=== PATIENT | female | born 1945 | race Caucasian/White ===

== ENCOUNTER → 2016-08-06 | Outpatient (CLI) | payer MEDICARE ==
--- NOTE | 2016-08-06 16:31 | US ---
EXAMINATION TYPE: US transvaginal DATE OF EXAM: 08/06/2016 1:29 PM COMPARISON: NONE CLINICAL HISTORY: 71-year-old female N95.0 postmenopausal bleeding, N95.2 Atrophic Vaginitis. Date of LMP: 20 years prior TECHNIQUE: Multiple transvaginal sonographic images of the pelvis are obtained. FINDINGS: ARCHITECTURAL TECHNICIAN NOTES: Large body habitus Uterus: Anteverted measuring 9.9 x 5.1 x 3.8 cm Endometrial Stripe: 1.2 cm, abnormally thickened. Neither ovary could be visualized. No evident adnexal abnormality or cul-de-sac free fluid. IMPRESSION: Endometrial thickening of 1.2 cm is abnormal for a postmenopausal female. Differential considerations include endometrial hyperplasia, polyps, and endometrial carcinoma. Further appropriate follow-up an d management is recommended.
--- NOTE | 2016-08-06 16:58 | BD ---
EXAMINATION TYPE: MG DEXA axial skeleton. DATE OF EXAM: 08/06/2016 2:58 PM COMPARISON: 2011 CLINICAL HISTORY: 71-year-old female post menopausal Height: 5'1 Weight: 272 FRAX RISK QUESTIONS: Alcohol (3 or more units per day): no Family History (Parent hip fracture): no Glucocorticoids (More than 3mos): no (Ex: prednisone, prednisolone, methylprednisolone, dexamethasone, and hydrocortisone). History of Fracture in Adulthood: yes Secondary Osteoporosis: 1. Type 1 Diabetes: no 2. Hyperthyroidism: no 3. Menopause before 45: no 4. Malnutrition: no 5. Chronic liver disease: no Rheumatoid Arthritis: no Current Tobacco Use: no RISK FACTORS HISTORY OF: Family History of Osteoporosis: Active: Postmenopausal woman: MEDICATIONS: Thyroid Medications: Which medication: Synthroid How Lon years Additional Medications: blood pressure Additional History: EXAM MEASUREMENTS: Bone mineral densitometry was performed using the [employer] System. Bone mineral density as measured about the Lumbar spine is: ----- L1-L4(G/cm2): 1.410 T Score Values are as follows: ----- L2: 2.9 ----- L3: 2.5 ----- L4: 0.3 ----- L1-L4: 1.9 Bone mineral density has: Increased 14.5% since study of: 03/25/2012 Bone mineral density about the R hip (g/cm2): 0.898 Bone mineral density about the L hip (g/cm2): 0.755 T Score values are as follows: -----R Neck: -1.0 -----L Neck: -2.0 -----R Intertrochanter: -1.2 -----L Intertrochanter: -2.7 Bone mineral density has: Decreased -4.7% since study of: 03/25/2012 IMPRESSION: Osteopenia as indicated by T score values in the left hip. There is slightly increased risk for fract ure and therapy can be considered. Re-Screen 2-5 years. NOTE: T-SCORE=SD OF THE YOUNG ADULT MEAN.
--- NOTE | 2016-08-07 11:51 | MM ---
Reason for exam: screening (asymptomatic). Last mammogram was performed 1 year ago. History: Patient is postmenopausal. Family history of breast cancer in 2 aunts at age 50. Excisional biopsy of the left breast, 1979. Took hormonal contraceptives for 3 years. Physical Findings: A clinical breast exam by your physician is recommended on an annual basis and results should be correlated with mammographic findings. MG 3D Screening Mammo W/Cad Bilateral CC and MLO view(s) were taken. Prior study comparison: July 28, 2015, bilateral MG 3d screening mammo w/cad. April 01, 2012, CAD bilateral diagnostic mammogram. The breast tissue is heterogeneously dense. This may lower the sensitivity of mammography. There is no discrete abnormality. No significant changes when compared with prior studies. ASSESSMENT: Negative, BI-RAD 1 RECOMMENDATION: Routine screening mammogram of both breasts in 1 year.
== END | disposition home or self-care (01) ==
LOC: RADUSWWP 12:48
PROVIDERS: ATTEND Family Medicine
DX: Z12.31 Encounter for screening mammogram for malignant neoplasm of breast (principal); M85.852 Other specified disorders of bone density and structure, left thigh; R93.8 Abnormal findings on diagnostic imaging of other specified body structures; M79.646 Pain in unspecified finger(s); M62.459 Contracture of muscle, unspecified thigh; Z78.0 Asymptomatic menopausal state
CPT/HCPCS: 77080; 77063; 76830; G0202

== ENCOUNTER → 2016-08-29 | Outpatient (CLI) | payer MEDICARE ==
[2016-08-29 10:46] LABS: Basophils % (A) 1 %; CH 28.9; CHCM 32.7; Eosinophils # (A) 0.1 k/uL (0-0.7); Eosinophils % (A) 2 %; HCT 47.6 % (34.0-46.0); HGB 15.1 gm/dL (11.4-16.0); Luc # (Auto) 0.23; Luc % (Auto) 3; Lymphocytes # (A) 2.2 k/uL (1.0-4.8); Lymphocytes % (A) 27 %; MCH 28.1 pg (25.0-35.0); MCHC 31.7 g/dL (31.0-37.0); MCV 88.8 fL (80.0-100.0); Monocytes # (A) 0.5 k/uL (0-1.0); Monocytes % (A) 7 %; Neutrophils # (A) 4.8 k/uL (1.3-7.7); Neutrophils % (A) 61 %; RBC 5.36 m/uL (3.80-5.40); RDW 13.7 % (11.5-15.5); WBC 7.9 k/uL (3.8-10.6); WBC (Perox) 8.01
== END | disposition home or self-care (01) ==
LOC: LABPAT 09:56
PROVIDERS: ATTEND Obstetrics & Gynecology
DX: Z01.818 Encounter for other preprocedural examination (principal)
CPT/HCPCS: 85025; 93005

== ENCOUNTER 2016-09-05 06:23 | Day surgery (SDC) | payer MEDICARE ==
[2016-08-31 12:37] VITALS: BMI 53.2
--- NOTE | 2016-09-04 19:50 | P.HPOB ---
History of Present Illness H&P Date: 09/04/16 Chief Complaint: Postmenopausal bleeding, endometrial thickening This is a 71-year-old female 5 para 3 who presents for dilation and curettage with hysteroscopy secondary to postmenopausal bleeding. She was having some spotting off and on since approximately January 2016. It would last 3-4 days and then stop for a few weeks and then restart. She describes the bleeding is spotting. She denies any preceding event. She states the bleeding episodes are occurring about 3 times a month and last each time for 3 days. Her pelvic ultrasound showed a uterus measuring 9.9 x 5.1 x 3.8 cm. Endometrial thickness was 1.2 cm. Neither ovary was well visualized. Obstetrical history: P3. History of 3 vaginal deliveries and 2 miscarriages. Gynecologic history: She does have a history of chlamydia treated in the past. She is not currently sexually active. Social history: She is and retired. Review of Systems Gastrointestinal: Denies abdominal pain Genitourinary: Reports abnormal vaginal bleeding, Denies pelvic pain Menstruation: Reports postmenopausal Past Medical History Past Medical History: Hypertension, Musculoskeletal Disorder, Thyroid Disorder Additional Past Medical History / Comment(s): Sciatica pain, gout History of Any Multi-Drug Resistant Organisms: None Reported Past Surgical History: Adenoidectomy, Cholecystectomy, Tonsillectomy, Tubal Ligation Additional Past Surgical History / Comment(s): Colonoscopy, dilation and curettage, left breast biopsy Past Anesthesia/Blood Transfusion Reactions: No Reported Reaction Past Psychological History: No Psychological Hx Reported Smoking Status: Former smoker Past Alcohol Use History: Rare Additional Past Alcohol Use History / Comment(s): smoked occ. quit 25-30 years ago Past Drug Use History: None Reported - Past Family History Brother(s) Family Medical History: Deep Vein Thrombosis (DVT) Father Family Medical History: Cancer Medications and Allergies Home Medications Medication Instructions Recorded Confirmed Type Levothyroxine Sodium [Synthroid] 25 mcg PO DAILY 08/31/16 08/31/16 History Levothyroxine Sodium [Synthroid] 200 mcg PO DAILY 08/31/16 08/31/16 History Ramipril 10 mg PO DAILY 08/31/16 08/31/16 History Allergies Allergy/AdvReac Type Severity Reaction Status Date / Time No Known Allergies Allergy Verified 08/31/16 12:23 Exam Osteopathic Statement: *. No significant issues noted on an osteopathic structural exam other than those noted in the History and Physical/Consult. Gen.: Obese Heart: Regular rate and rhythm Lungs: Clear to auscultation bilaterally Abdomen: Large panniculus with umbilical hernia Pelvic exam: Second-degree rectocele is noted. Cervix is multiparous with no lesions or discharge noted at this time. Uterus is anteverted, nontender with no adnexal masses or tenderness palpated. Exam was difficult due to patient's size. Extremities: Negative Homans Assessment and Plan (1) Postmenopausal bleeding Status: Acute (2) Endometrial thickening on ultra sound Status: Acute Plan: Proceed with dilation and curettage with hysteroscopy. I have discussed the risks, benefits, and alternative therapies for the above- mentioned procedure and for both sedation/anesthesia as well as necessary blood products administration, if indicated, as they pertain to this patient. The patient has indicated her understanding and acceptance of the risks and procedures discussed.
[~2016-09-05 06:23] MED LIST: DEXAMETHASONE SOD PHOSPHATE 10 MG/ML 1 ML VIAL IV ONE; HYDROmorphone 1 MG/ML 1 ML SYRINGE IVP PRN; LACTATED RINGERS 1,000 ML IV SCH; LIDOCAINE 1% 20 ML VIAL (10MG/ML) FOR IV START INTRADERMA PRN; MIDAZOLAM 2 MG/2 ML VIAL IV PRN; ONDANSETRON 4 MG/2 ML VIAL IVP ONE; Pre Op ABX Message 1 EACH MISC MISCELLANE ONE; SCOPOLAMINE 1.5MG/72HR PATCH TRANSDERM ONE
[2016-09-05 07:02] VITALS: TEMP 97.7
[2016-09-05] MEDS ORDERED: MIDAZOLAM 2 MG/2 ML VIAL ONE (07:26)
[2016-09-05] MEDS ORDERED: KETOROLAC 30 MG/ML 1 ML VIAL ONE (07:26)
[2016-09-05] MEDS ORDERED: LIDOCAINE 1% INJ 10MG/ML (20 ML MDV) ONE (07:26)
[2016-09-05] MEDS ORDERED: PROPOFOL 10 MG/ML 20 ML VIAL IV ONE (07:26)
[2016-09-05] MEDS ORDERED: SUCCINYLCHOLINE CHLORIDE VIAL 200 MG/10 ML VIAL IV ONE (07:26)
[2016-09-05] MEDS ORDERED: ePHEDrine 50 MG/ML 1 ML AMP ONE (07:26)
--- NOTE | 2016-09-05 07:57 | P.OP ---
Date of Procedure: 09/05/16 Preoperative Diagnosis: Post menopausal bleeding, endometrial thickening Postoperative Diagnosis: Same Procedure(s) Performed: Hysteroscopy with dilation and curettage Anesthesia: MERI Surgeon: Karon Baird Estimated Blood Loss (ml): 5 Pathology: other (Endometrial curettings) Condition: stable Disposition: same day Indications for Procedure: This is a 71-year-old female 5 para 3 who presents for dilation and curettage with hysteroscopy secondary to postmenopausal bleeding. She was having some spotting off and on since approximately January 2016. It would last 3-4 days and then stop for a few weeks and then restart. She describes the bleeding is spotting. She denies any preceding event. She states the bleeding episodes are occurring about 3 times a month and last each time for 3 days. Her pelvic ultrasound showed a uterus measuring 9.9 x 5.1 x 3.8 cm. Endometrial thickness was 1.2 cm. Neither ovary was well visualized. Operative Findings: Uterus is mid to anteverted, sounded to 10 cm. No adnexal masses are palpated. Upon hysteroscopy a large amount of endometrial tissue is noted. It is difficult to visualize both tubal ostia however the right one is visualized completely and the left one is partially visualized. There is a lot of debris within the endometrial cavity. There is a large amount of endometrial curettings and polyp-type tissue obtained. Description of Procedure: The patient is taken to the operating room where she is placed in the dorsal lithotomy position. She is prepped and draped in the normal sterile fashion. Bladder is drained with a catheter and then removed. Examination is performed under anesthesia. Uterus is difficult to palpate but appears to be mid to anteverted position. There are no adnexal masses palpated. She does have a large ventral hernia palpated. A weighted speculum was placed in the patient's vagina and a right angle retractor was used to visualize the cervix. She is placed in slight Trendelenburg position. A single-tooth tenaculum is used to grasp the anterior lip of the cervix. Next the uterus is sounded to 10 cm. Cervix is gently dilated with Medina dilators until a hysteroscope could be passed. Hysteroscopy is performed using normal saline. The above-noted findings are made. Pictures are taken. Next the hysteroscope was withdrawn and the cervix is gently dilated further. Polyp forceps are introduced and a large amount of polypoid type tissue was obtained. Next a medium-size sharp curet was introduced and sharp curettage was with a large amount of endometrial curettings obtained. Next the specimen was removed from the field. The single- toothed was removed and no bleeding was noted. All other instrument are removed from the vagina. All sponge counts are correct. The patient is then taken to recovery room.
[2016-09-05 08:17] VITALS: RESP 16
[2016-09-05 09:55] VITALS: BP 121/65; PULSE 70
== END 2016-09-05 10:38 | disposition home or self-care (01) ==
LOC: OR 06:23
PROVIDERS: ATTEND Obstetrics & Gynecology
DX: C54.1 Malignant neoplasm of endometrium (principal); N85.02 Endometrial intraepithelial neoplasia [EIN]; K43.9 Ventral hernia without obstruction or gangrene; I10 Essential (primary) hypertension; E07.9 Disorder of thyroid, unspecified; Z79.899 Other long term (current) drug therapy
CPT/HCPCS: 88305; 58558; J2250; J0330; J1100; J2405; J2001; J1885; J2704

== ENCOUNTER → 2016-09-27 | Outpatient (CLI) | payer MEDICARE ==
[2016-09-27 13:39] LABS: Blood Urea Nitrogen 13 mg/dL (7-17); Non-African American GFR(MDRD) >60 (>60 ml/min/1.73 sqM)
--- NOTE | 2016-09-27 15:35 | CT ---
EXAMINATION TYPE: CT ChestAbdPelvis w con DATE OF EXAM: 09/27/2016 COMPARISON: Previous study dated 04/01/2012. HISTORY: Endometrial cancer CT DLP: 2496 mGycm Automated exposure control for dose reduction was used. TECHNIQUE: Helical acquisition through the abdomen and pelvis was obtained without oral contrast but following the intravenous administration of 100 mL of Omnipaque 300. The data was formatted in the a xial, coronal and sagittal projections. FINDINGS: There is a tiny calcified granuloma in the lateral segment of the right lower lobe. There i s a questionable 4.2 mm nodule in the lateral segment of the right lower lobe, best seen on image 17. There is some scarring or atelectasis in the right middle lobe there is no significant axillary, int ernal mammary, mediastinal or hilar adenopathy. There is no pleural or pericardial fluid. The heart i s not enlarged. There is coronary artery calcifications as well as other vascular calcifications. Within the abdomen, the gallbladder is been removed. The liver is enlarged measuring 18 cm. The liver is mildly fatty infiltrated. Both adrenal glands are normal. The pancreas is unremarkable. Both kidneys demonstrate function and are morphologically normal. The right kidney is malrotated. There is no significant retroperitoneal, iliac or inguinal adenopathy. There is a ventral hernia with a mouth measuring 1.5 cm. This contains a small loop of colon. The fat within the hernia appears slightly indurated. The mucosa of the loop of colon also appears thickened and indurated. Uterus and ovaries are unremarkable. The bladder is unremarkable. There are scattered diverticula throughout the left side of the colon without radiographic evidence o f diverticulitis. The appendix is not visualized with certainty. Small bowel loops are normal. No free fluid and no free air is seen. There is degenerative disc disease, facet arthropathy and hypertrophic spondylosis throughout the spi ne. No bony destructive lesion is seen. IMPRESSION: 1. QUESTIONABLE TINY 4.2 MM NODULE IN THE LATERAL SEGMENT OF THE RIGHT LOWER LOBE. 2. EVIDENCE OF OLD GRANULOMATOUS DISEASE. 3. MILD HEPATOMEGALY AND FATTY INFILTRATION OF THE LIVER. 4. CORONARY ARTERY AND OTHER VASCULAR CALCIFICATIONS. 5. VENTRAL HERNIA WITH A MOUTH MEASURING 1.5 CM CONTAINING A SMALL LOOP OF COLON. I COULD NOT EXCLUDE MILD INCARCERATION. 6. UNCOMPLICATED DIVERTICULOSIS OF THE LEFT SIDE OF THE COLON. 7. DEGENERATIVE CHANGES WITHIN THE SPINE.
== END | disposition home or self-care (01) ==
LOC: RADCTMAIN 13:07
PROVIDERS: ATTEND Obstetrics & Gynecology Gynecologic Oncology
DX: K57.30 Diverticulosis of large intestine without perforation or abscess without bleeding (principal); K76.0 Fatty (change of) liver, not elsewhere classified; K43.9 Ventral hernia without obstruction or gangrene; R16.0 Hepatomegaly, not elsewhere classified; C54.1 Malignant neoplasm of endometrium
CPT/HCPCS: 82565; 84520; 71260; 74177; 36415; Q9967

== ENCOUNTER → 2017-12-26 | Outpatient (CLI) | payer MEDICARE ==
[2017-12-26 08:50] LABS: Blood Urea Nitrogen 20 mg/dL (7-17)
--- NOTE | 2017-12-26 10:48 | CT ---
EXAMINATION TYPE: CT ChestAbdPelvis w con DATE OF EXAM: 12/26/2017 COMPARISON: 04/02/2017 and 09/27/2016 HISTORY: 72 year-old female history of endometrial carcinoma. TECHNIQUE: Contiguous axial scanning of the chest, abdomen, and pelvis performed with IV Contrast, pa tient injected with 100 ml mL of Isovue 300. Delayed images through the kidneys were obtained. Aguilar l/sagittal reconstructions performed. CT DLP: 1942 mGycm Automated exposure control for dose reduction was used. FINDINGS: Chest: Heart normal size without pericardial effusion. Coronary vessel calcifications are present. Aorta normal caliber with conventional arch vessel branching anatomy. No thoracic lymphadenopathy by CT size criteria. Calcified subcarinal lymph node and a couple scatter ed calcified granulomas in the lungs redemonstrated. Strandy atelectasis or scarring at the inferior lingula and right middle lobe. No noncalcified pulmon quin nodules are identified. No consolidation or pleural effusion. ABDOMEN: Liver mildly enlarged at 18.7 cm. There may be underlying fatty infiltration. Calcified granulomas ar e present within. Cholecystectomy clips. No biliary ductal dilatation. Portal venous system appears p atent. Adrenal glands, left kidney, spleen, and pancreas appear within normal limits. The right kidney appears slightly malrotated with suspected duplex collecting system. Tiny hiatal hernia. No dilated small bowel, free fluid, or free air. Mild apical scarring calcifications within the abdom inal aorta without aneurysm. No mesenteric or retroperitoneal lymphadenopathy identified some minimal mid mesenteric haziness is u nchanged Mild to moderate stool burden. Mild distal colonic diverticulosis. No pericolonic inflammatory change . Pelvis: Marked bulging of the patient's mid to lower anterior abdominal wall. The majority of the patient's p revious anterior lower abdominal fluid collection has resolved. Residual sliver of fluid remains lucero uring 7.6 cm AP by 4.1 cm wide by only 9 mm thick. Uterus and ovaries surgically absent. Surgical clips at the left pelvic sidewall with some residual s trandy density and edema, decreased slightly from 04/02/2017. Bones: Degenerative changes at the hips and throughout the spine. No osseous destructive process seen. IMPRESSION: 1. STATUS POST HYSTERECTOMY AND BILATERAL SALPINGO-OOPHORECTOMY. THERE ARE SURGICAL CHANGES ALSO FERNANDO G THE LEFT PELVIC SIDEWALL WITH RESIDUAL STRANDY SOFT TISSUE/EDEMA SLIGHTLY DECREASED FROM 04/02/2017. 2. DECREASING SIZE OF THE PATIENT'S LOWER ANTERIOR ABDOMINAL WALL FLUID COLLECTION, LIKELY POSTOPERAT POOJA SEROMA. THERE IS NOW ONLY A PLATELIKE COLLECTION OF FLUID MEASURING 9 MM THICK AND 7.6 CM AP VERS US 3.8 CM THICK AND 10.7 CM AP, PREVIOUSLY. 3. NO EVIDENCE FOR METASTATIC DISEASE. THE RIGHT LOWER LOBE PULMONARY NODULES ARE CALCIFIED COMPATIBL E WITH OLD GRANULOMATOUS DISEASE. 4. MILD HEPATOMEGALY WITH FATTY INFILTRATION, TINY HIATAL HERNIA, AND MILD DISTAL COLONIC DIVERTICULO SIS.
== END | disposition home or self-care (01) ==
LOC: RADCTMAIN 08:02
PROVIDERS: ATTEND Family Medicine
DX: K57.30 Diverticulosis of large intestine without perforation or abscess without bleeding (principal); K76.0 Fatty (change of) liver, not elsewhere classified; R16.0 Hepatomegaly, not elsewhere classified; K44.9 Diaphragmatic hernia without obstruction or gangrene; R91.1 Solitary pulmonary nodule; C54.1 Malignant neoplasm of endometrium; Z90.710 Acquired absence of both cervix and uterus; Z98.890 Other specified postprocedural states
CPT/HCPCS: 82565; 84520; 71260; 74177; 36415; Q9967

== ENCOUNTER → 2018-11-14 | Outpatient (CLI) | payer MEDICARE ==
[2018-11-14 16:25] LABS: African American GFR (CKD) >90 (>60 ml/min/1.73 sqM); Blood Urea Nitrogen 20 mg/dL (7-17)
--- NOTE | 2018-11-14 20:38 | CT ---
EXAMINATION TYPE: CT ChestAbdPelvis w con DATE OF EXAM: 11/14/2018 COMPARISON: Prior CT chest abdomen pelvis 12/26/2017 HISTORY: Malignant neoplasm of endometrium. CT DLP: 2839.7 mGycm Automated exposure control for dose reduction was used. CONTRAST: CT scan of the chest, abdomen and pelvis is performed with Oral Contrast and with IV Contrast, patien t injected with 100 mL of Isovue M300. FINDINGS: LUNGS: The lungs are grossly clear, there is no concerning parenchymal mass or nodule identified. Ca lcified granuloma present in the right lower lobe. 3 mm nodule right middle lobe is also stable. Ther e is no pleural effusion or pneumothorax seen. The tracheobronchial tree is patent. MEDIASTINUM: There are no greater than 1 cm hilar or mediastinal lymph nodes. There are coronary art antwon calcifications present. No pericardial effusion is seen. AORTA: No significant abnormality is seen. OTHER: Postop change noted along the anterior abdominal wall in the infraumbilical location. LIVER/GB: Calcification within the spleen is stable. Low density within the liver suggests hepatic st eatosis, liver is enlarged. PANCREAS: No significant abnormality is seen. SPLEEN: No significant abnormality is seen. ADRENALS: No significant abnormality is seen. KIDNEYS: No significant abnormality is seen. REPRODUCTIVE ORGANS: Not seen, surgical clips are present in the pelvis with some associated probable scar along the left pelvic sidewall similar to prior BOWEL: Some diverticular changes associated with the colon. FREE AIR: No Free Air visible. ASCITES: None seen. RETROPERITONEAL ADENOPATHY: No retroperitoneal adenopathy is seen. LYMPH NODES: No greater than 1 cm abdominal or pelvic lymph nodes are appreciated. URINARY BLADDER: No significant abnormality is seen. PELVIC ADENOPATHY: None visualized. OSSEOUS STRUCTURES: Stable, degenerative disc changes and facet arthropathy noted especially in the lower lumbar spine IMPRESSION: No evident recurrence. Postop changes.
== END | disposition home or self-care (01) ==
LOC: RADCTMAIN 15:45
PROVIDERS: ATTEND Family Medicine
DX: C54.1 Malignant neoplasm of endometrium (principal); Z98.890 Other specified postprocedural states
CPT/HCPCS: 82565; 84520; 71260; 74177; 36415; Q9967

== ENCOUNTER → 2019-11-03 | Outpatient (CLI) | payer MEDICARE ==
[2019-11-03 12:15] LABS: African American GFR (CKD) >90 (>60 ml/min/1.73 sqM); Blood Urea Nitrogen 15 mg/dL (7-17); Non-African American GFR(CKD) >90 (>60 ml/min/1.73 sqM)
--- NOTE | 2019-11-03 14:44 | CT ---
EXAMINATION TYPE: CT ChestAbdPelvis w con DATE OF EXAM: 11/03/2019 COMPARISON: 11/14/2018 and 12/26/2017 HISTORY: 74-year-old female follow-up for uterine CA. C54.1, malignant neoplasm endometrium. TECHNIQUE: Contiguous axial scanning of the chest, abdomen, and pelvis performed with IV Contrast, pa tient injected with 100 mL of Isovue 300. Delayed images through the kidneys were obtained. Coronal/s agittal reconstructions performed. CT DLP: 1624 mGycm Automated exposure control for dose reduction was used. FINDINGS: CHEST: Heart normal size without pericardial effusion. LAD and minimal RCA coronary artery calcifications ar e present as well as aortic valvular calcifications. Aorta normal caliber with mild atherosclerotic arch calcifications and conventional arch vessel branc paulo anatomy. No thoracic lymphadenopathy by CT size criteria. Calcified subcarinal lymph nodes compatible with celia or granulomatous disease. There are strandy atelectasis in the lower lungs. Redemonstrated calcified granulomas in the right ba se. No consolidation or pleural effusion. ABDOMEN: Liver enlarged measuring 18.5 cm. There is low attenuation suggesting fatty infiltration. A few scatt ered calcified granulomas in the liver. Cholecystectomy clips. No biliary ductal dilatation. Portal v enous system appears patent. Adrenal glands, left kidney, spleen, and pancreas appear within normal limits. Malrotated right kidney. Moderate and atherosclerotic calcifications abdominal aorta and iliac arteries. Excessive nor is artifacts from patient's very large body habitus limiting the evaluation. No dilated small bowel, free fluid, or free air. Mild overall stool burden. Mild sigmoid diverticulos is. No pericolonic inflammatory change clearly identified. Pelvis: Severe nose artifacts limiting assessment. Bladder is collapsed. Uterus surgically absent. Surgical clip left side of the pelvis. Some residual stable asymmetric thickening along the left side of the pelvis adjacent to the surgical clips. Alignm ent for the extensive artifacts, no obvious progressive abnormal soft tissue or new lymphadenopathy i s identified. BONES: Moderate degenerative changes of the hips and SI joints. 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 IMPRESSION: 1. STATUS POST HYSTERECTOMY AND BILATERAL SALPINGO-OOPHORECTOMY. THERE IS MARKED LIMITATION IN ASSESS MENT OF THE LOWER ABDOMEN AND PELVIS ON THE CURRENT EXAM DUE TO SEVERE NOISE ARTIFACT FROM PATIENT'S LARGE BODY HABITUS. THE THICKENING ON THE LEFT SIDE OF THE PELVIS ADJACENT TO SOME SURGICAL CLIPS REM AINS STABLE SUGGESTING POSTOPERATIVE CHANGES. NO OBVIOUS LYMPHADENOPATHY OR CONVINCING EVIDENCE FOR D ISEASE RECURRENCE. 2. PRIOR GRANULOMATOUS DISEASE, MILD HEPATOMEGALY AT 18.5 CM (WITH SUSPECTED FATTY INFILTRATION), INC IDENTAL MALROTATED RIGHT KIDNEY, AND MILD SIGMOID DIVERTICULOSIS.
== END | disposition home or self-care (01) ==
LOC: RADCTMAIN 11:17
PROVIDERS: ATTEND Family Medicine
DX: D71 Functional disorders of polymorphonuclear neutrophils (principal); R16.0 Hepatomegaly, not elsewhere classified; N94.89 Other specified conditions associated with female genital organs and menstrual cycle; C54.1 Malignant neoplasm of endometrium; Z90.722 Acquired absence of ovaries, bilateral; Z90.710 Acquired absence of both cervix and uterus
CPT/HCPCS: 82565; 84520; 71260; 74177; 36415; Q9967

== ENCOUNTER → 2021-11-07 | Outpatient (CLI) | payer MEDICARE ==
--- NOTE | 2021-11-08 07:54 | MM ---
Reason for Exam: Screening (asymptomatic). Last mammogram was performed 1 year(s) and 8 month(s) ago. Patient History: Menarche at age 13. First Full-Term at age 28. Left ovary removed at age 71. Right ovary removed at age 71. Hysterectomy at age 71. Postmenopausal. Patient used Hormonal Contraceptives for 3 years. 1979, Excisional Biopsy on the Left side. Maternal aunt had breast cancer, age 50. Maternal aunt had breast cancer, age 50. Risk Values: Kori 5 year model risk: 2.3%. NCI Lifetime model risk: 4.7%. Prior Study Comparison: 04/01/2012 Bilateral Diagnostic Mammogram, [facility]. 07/28/2015 Bilateral Screening Mammogram, [facility]. 08/06/2016 Bilateral Screening Mammogram, [facility]. Tissue Density: There are scattered fibroglandular densities. Findings: Analyzed By CAD. There is no suspicious group of microcalcifications or new suspicious mass in either breast. Overall Assessment: Negative, BI-RAD 1 Management: Screening Mammogram of both breasts in 1 year. A clinical breast exam by your physician is recommended on an annual basis and results should be correlated with mammographic findings. Electronically signed and approved by: Leodan Treviño M.D. Radiologis
== END | disposition home or self-care (01) ==
LOC: RADMAMWWP 15:08
PROVIDERS: ATTEND Family Medicine
DX: Z12.31 Encounter for screening mammogram for malignant neoplasm of breast (principal)
CPT/HCPCS: 77063; 77067

== ENCOUNTER → 2022-11-13 | Outpatient (CLI) | payer MEDICARE ==
--- NOTE | 2022-11-13 19:11 | XR ---
EXAMINATION TYPE: XR knee limited LT DATE OF EXAM: 11/13/2022 COMPARISON: NONE HISTORY: 77-year-old female M25.562 TECHNIQUE: 2 views FINDINGS: There is tricompartmental degenerative spurring. Extensor mechanism is intact. Moderate loss of carti javier and joint space in the medial compartment. No acute fracture, subluxation, dislocation. IMPRESSION: Tricompartmental osteoarthrosis, moderate in the medial compartment. No acute osseous abnormality see n.
--- NOTE | 2022-11-13 19:21 | BD ---
EXAMINATION TYPE: Axial Bone Density DATE OF EXAM: 11/13/2022 CLINICAL HISTORY: 77 years old Female. ICD-10 CODE: Z78.0 ASYMPTOMATIC MENOPAUSAL STATE Height: 60 Weight: 228.1 FRAX RISK QUESTIONS: Alcohol (3 or more units per day): no Family History (Parent hip fracture): no Glucocorticoids (More than 3mos): no (Ex: prednisone, prednisolone, methylprednisolone, dexamethasone, and hydrocortisone). History of Fracture in Adulthood: no Secondary Osteoporosis: 1. Type 1 Diabetes: no 2. Hyperthyroidism: no 3. Menopause before 45: no 4. Malnutrition: no 5. Chronic liver disease: no Rheumatoid Arthritis: no Current Tobacco Use: no RISK FACTORS HISTORY OF: Surgery to Spine/Hip(right/left)/Wrist (right/left): no Family History of Osteoporosis: yes Diet low in dairy products/other sources of calcium: yes Postmenopausal woman: yes Lost more than 2 inches in height since high school: yes MEDICATIONS: Thyroid Medications: levothyroxine How Long: since 1979 Additional History: EXAM MEASUREMENTS: Bone mineral densitometry was performed using the [employer] System. Bone mineral density as measured about the Lumbar spine is: ----- L1-L4(G/cm2): 1.435 T Score Values are as follows: ----- L1: 2.8 ----- L2: 1.7 ----- L3: 3.3 ----- L4: 0.9 ----- L1-L4: 2.1 Z Score Values are as follows: ----- L1: 3.5 ----- L2: 2.3 ----- L3: 3.9 ----- L4: 1.6 ----- L1-L4: 2.8 Bone mineral density has: increased 1.8 % since study of: 08.06.2016 Bone mineral density about the R hip (g/cm2): 0.801 Bone mineral density about the L hip (g/cm2): 0.817 T Score values are as follows: -----R Neck: -1.8 -----L Neck: -1.6 -----R Total: -1.6 -----L Total: -1.5 Z Score values are as follows: -----R Neck: -0.6 -----L Neck: -0.3 -----R Total: -0.6 -----L Total: -0.5 Bone mineral density has: decreased -3.3 % since study of: 08.06.2016 FRAX%s: The graph provided illustrates a 11.8% chance for a major osteoporotic fx and a 2.8% chance f or the hips probability for fx in 10 years time. IMPRESSION: Osteopenia (T Score between -2.5 and -1). There is slightly increased risk of fracture and the patient may be considered for treatment. Re-Screen 2-5 years. NOTE: T-SCORE=SD OF THE YOUNG ADULT MEAN.
--- NOTE | 2022-11-14 08:22 | CA ---
Transthoracic Echo Report Name: Ewa Kendrick Age: 77 Gender: F : 1945 Exam Date: 11/13/2022 12:42 Exam Location: [facility] Ht (in): 60 Wt (lb): 228 Ordering Physician: Anisha Campbell MD Attending/Referring Phys: English And Reading Instructor Andreina Mensah RDCS Procedure CPT: Indications: R10.1 Cardiac Hx: Technical Quality: technically difficult Contrast 1: Total Dose (mL): Contrast 2: Total Dose (mL): MEASUREMENTS (Male / Female) Normal Values 2D ECHO LV Diastolic Diameter PLAX 3.9 cm 4.2 - 5.9 / 3.9 - 5.3 cm LV Systolic Diameter PLAX 2.6 cm IVS Diastolic Thickness 1.5 cm 0.6 - 1.0 / 0.6 - 0.9 cm LVPW Diastolic Thickness 1.3 cm 0.6 - 1.0 / 0.6 - 0.9 cm LV Relative Wall Thickness 0.7 RV Internal Dim ED PLAX 2.9 cm LVOT Diameter 1.5 cm LA Volume 47.9 cm??? 18 - 58 / 22 - 52 cm??? M-MODE Aortic Root Diameter MM 3.0 cm LA Systolic Diameter MM 5.1 cm LA Ao Ratio MM 1.7 AV Cusp Separation MM 1.4 cm DOPPLER AV Peak Velocity 228.8 cm/s AV Peak Gradient 20.9 mmHg AV Mean Velocity 157.5 cm/s AV Mean Gradient 11.5 mmHg AV Velocity Time Integral 48.4 cm LVOT Peak Velocity 141.6 cm/s LVOT Peak Gradient 8.0 mmHg LVOT Velocity Time Integral 27.8 cm LVOT Stroke Volume 48.0 cm??? LVOT Stroke Volume Index 24.3 ml/m??? LVOT Cardiac Index 1535.4 cm???/min???m??? AV Area Cont Eq vti 1.0 cm??? AV Area Cont Eq pk 1.1 cm??? Mitral E Point Velocity 77.3 cm/s Mitral A Point Velocity 95.0 cm/s Mitral E to A Ratio 0.8 MV Deceleration Time 284.2 ms MV E' Velocity 4.0 cm/s Mitral E to MV E' Ratio 19.2 FINDINGS Left Ventricle Moderately increased left ventricular wall thickness. Left ventricular cavity size normal. Normal left ventricular systolic function with no obvious regional wall motion abnormalities. Left ventricular ejection fraction is estimated at 50-55 %. Right Ventricle Normal right ventricular size and function. Right Atrium Normal right atrial size. Left Atrium Normal left atrial size. Mitral Valve Mild mitral regurgitation. Mild mitral annular calcification. Aortic Valve Diffuse thickening of the aortic valve cusps with reduced excursion. Mild aortic stenosis with mean gradient of 13 mmHg, peak velocity 2.5 m/s. Tricuspid Valve Structurally normal tricuspid valve. Mild tricuspid regurgitation. Pulmonic Valve Trace pulmonic regurgitation. Pericardium No pericardial effusion. Epicardial fat seen. Aorta Normal size aortic root and proximal ascending aorta. CONCLUSIONS Normal LV size and global systolic function. Estimated LVEF is 50-55% No obvious regional wall motion abnormality Calcific aortic valve mild aortic stenosis, mean gradient 13 mmhg, peak velocity 2.5 mg significant No other significant valvular heart disease No other significant chamber size abnormality No prior echo to compare with Previewed by: Dr Daron Castellanos (Electronically Signed) Final Date: 13 November 2022 15:31
--- NOTE | 2022-11-14 18:20 | MM ---
Reason for Exam: Screening (asymptomatic). Last screening mammogram was performed 12 month(s) ago. Patient History: Menarche at age 13. First Full-Term at age 28. Left ovary removed at age 71. Right ovary removed at age 71. Hysterectomy at age 71. Postmenopausal. Patient used Hormonal Contraceptives for 3 years. 1979, Excisional Biopsy on the Left side. Maternal aunt had breast cancer, age 50. Maternal aunt had breast cancer, age 50. Risk Values: Kori 5 year model risk: 2.3%. NCI Lifetime model risk: 4.4%. Prior Study Comparison: 08/06/2016 Bilateral Screening Mammogram, [facility]. 03/08/2020 Bilateral MG 3D screening mammo w/cad, [facility]. 11/07/2021 Bilateral MG 3D screening mammo w/cad, [facility]. Tissue Density: There are scattered fibroglandular densities. Findings: Analyzed By CAD. A few benign vascular and oil cyst calcifications. There is no suspicious group of microcalcifications or new suspicious mass in either breast. Overall Assessment: Benign, BI-RAD 2 Management: Screening Mammogram of both breasts in 1 year. . Patient should continue monthly self-breast exams. A clinical breast exam by your physician is recommended on an annual basis. This exam should not preclude additional follow-up of suspicious palpable abnormalities. Note on Kori scores and lifetime risk: 1. A Kori score greater than 3% is considered moderate risk. If this is the case, consider specialist referral to assess eligibility for a risk reducing agent. 2. If overall lifetime risk for the development of breast cancer is 20% or higher, the patient may qualify for future screening with alternating mammogram and breast MRI. Electronically signed and approved by: Raymundo Aden M.D. Radiologist
== END | disposition home or self-care (01) ==
LOC: RADMAMWWP 12:17
PROVIDERS: ATTEND Family Medicine
DX: Z12.31 Encounter for screening mammogram for malignant neoplasm of breast (principal); M85.88 Other specified disorders of bone density and structure, other site; M17.12 Unilateral primary osteoarthritis, left knee; I35.0 Nonrheumatic aortic (valve) stenosis; I34.0 Nonrheumatic mitral (valve) insufficiency; I36.1 Nonrheumatic tricuspid (valve) insufficiency; I37.1 Nonrheumatic pulmonary valve insufficiency; R01.1 Cardiac murmur, unspecified; Z78.0 Asymptomatic menopausal state; Z80.3 Family history of malignant neoplasm of breast
CPT/HCPCS: 77063; 77067; 77080; 93306

== ENCOUNTER → 2024-02-12 | Day surgery (SDC) | payer MEDICARE ==
[~2024-02-12] MED LIST changes: -DEXAMETHASONE SOD PHOSPHATE 10 MG/ML 1 ML VIAL IV ONE; -HYDROmorphone 1 MG/ML 1 ML SYRINGE IVP PRN; -LACTATED RINGERS 1,000 ML IV SCH; +LIDOCAINE 1% (10MG/ML) FOR IV START INTRADERMA PRN; -LIDOCAINE 1% 20 ML VIAL (10MG/ML) FOR IV START INTRADERMA PRN; -MIDAZOLAM 2 MG/2 ML VIAL IV PRN; -ONDANSETRON 4 MG/2 ML VIAL IVP ONE; +PROPOFOL 10 MG/ML 20 ML VIAL IV ONE; -Pre Op ABX Message 1 EACH MISC MISCELLANE ONE; -SCOPOLAMINE 1.5MG/72HR PATCH TRANSDERM ONE
[2024-02-12 13:37] VITALS: TEMP 98.4
[2024-02-12] MEDS: IV FLUID CONTINUATION 1,000 ML IV ONE ×2 (13:48)
[2024-02-12] MEDS: LACTATED RINGERS 1,000 ML IV SCH (13:48)
--- NOTE | 2024-02-12 14:47 | P.PCN ---
Date of Procedure: 02/12/24 Procedure(s) Performed: BRIEF HISTORY: Patient is a 78-year-old pleasant white female scheduled for an elective colonoscopy as a part of screening for colon cancer/positive Cologuard. PROCEDURE PERFORMED: Colonoscopy snare polypectomy. PREOPERATIVE DIAGNOSIS: Screening for colon cancer/positive Cologuard. IV sedation per Anesthesia. PROCEDURE: After informed consent was obtained, the patient, was brought into the endoscopy unit. IV sedation was administered by Anesthesia under continuous monitoring. Digital rectal examination was normal. Initially the Olympus CF-160 flexible video colonoscope was then inserted in the rectum, gradually advanced into the cecum without any difficulty. Careful examination was performed as the scope was gradually being withdrawn. Ileocecal valve and the appendiceal orifice were visualized and appeared normal. Prep was excellent. Mucosa of the cecum had a 5 mm sessile polyp removed by cold snare polypectomy. Rest of the, ascending colon, transverse colon, descending colon, sigmoid colon, and rectum appeared normal. Scattered left-sided diverticulosis. Retroflexion was performed in the rectum and no lesions were seen. The patient tolerated the procedure well. IMPRESSION: 5 mm sessile cecal polyp status post cold snare polypectomy Scattered left-sided diverticulosis RECOMMENDATIONS: Findings of this examination were discussed with the patient as well as her family.. She was advised to follow-up with the biopsy results. If the biopsy reveals adenoma she can have repeat colonoscopy in 5 years.
[2024-02-12 15:09] VITALS: BP 100/64; PULSE 88; RESP 18
== END ==
LOC: ORWHC2ENDO 12:59
PROVIDERS: ATTEND Internal Medicine Gastroenterology
CPT/HCPCS: 45385; 88305